=== PATIENT | male | born 1965 | race Caucasian/White ===

== ENCOUNTER 2018-01-15 21:00 | Emergency (ER) | payer OTHER ==
[~2018-01-15] VITALS: Ht 175.3 cm; Wt 96.9 kg
[2018-01-15 21:45] LABS: HEMATOCRIT 55.2 % (38.0-50.0); HEMOGLOBIN 18.4 G/DL (12.5-16.6); MCH 29.1 PG (29.0-34.0); MCHC 33.3 G/DL (30.0-36.0); MCV 87.3 FL (86-99); PLATELET COUNT 151 K/uL (156-360); RBC DIS.WIDTH-CV 14.1 % (11.8-14.6); RBC DIS.WIDTH-SD 44.3 % (39-53); RED BLOOD COUNT 6.32 M/uL (4.00-5.50); WHITE BLOOD COUNT 14.8 K/uL (4.1-10.2)
[2018-01-15 21:57] LABS: ALBUMIN 4.4 g/dL (3.2-4.8); CHLORIDE 106 mEq/L (99-109); SODIUM 143 mEq/L (136-147)
[2018-01-15 21:59] LABS: GLUCOSE 121 mg/dL (70-99); TOTAL PROTEIN 8.6 g/dL (6.4-8.3)
[2018-01-15 22:01] LABS: TOTAL BILIRUBIN 0.3 mg/dL (0.0-1.0)
[2018-01-15 22:03] LABS: ALKALINE PHOSPHATASE 107 IU/L (3-129); GFR ESTIMATE (CALCULATED) > 59 mL/min/ (58.99-99999)
[2018-01-15 22:04] LABS: UREA NITROGEN (BUN) 10 mg/dL (9-23)
[2018-01-15 22:05] LABS: AST (GOT) 28 IU/L (2-34)
[2018-01-15 22:06] LABS: ALT (GPT) 56 IU/L (3-49); LIPASE 12 U/L (1.0-51.0)
[2018-01-15 22:31] LABS: TROP-I INTERPRETATION NEGATIVE; TROPONIN-I < 0.01 ng/mL (0.0-0.30)
[2018-01-15] MEDS ORDERED: FLAGYL500 MG PO (23:10)
[2018-01-15] MEDS ORDERED: CIPRO500 MG PO (23:10)
[2018-01-15] MEDS ORDERED: ZOFRAN4 MG PO (23:12)
[2018-01-15 23:34] VITALS: BP 140/86
== END 2018-01-15 23:40 ==
LOC: EME → EDBD 21:00 → EME 21:00
PROVIDERS: Emergency Medicine
DX: K80.20 Calculus of gallbladder without cholecystitis without obstruction (principal); K21.9 Gastro-esophageal reflux disease without esophagitis; I10 Essential (primary) hypertension; F32.9 Major depressive disorder, single episode, unspecified; Z87.891 Personal history of nicotine dependence
CPT/HCPCS: 76705; 80053; 81003; 83690; 84484; 85027; 93005; J2405; J7030